=== PATIENT | female | born 1955 | race Caucasian/White ===

== ENCOUNTER 2020-04-25 11:45 | Observation (INO) | payer MEDICARE, OTHER ==
[2020-04-25 11:57] LABS: Glucose,Whole Blood 100 mg/dL (75-99)
[2020-04-25] MEDS ORDERED: SODIUM CHLORIDE 0.9% 1,000 ML IV STA (12:16)
[2020-04-25 12:48] LABS: Appearance,Urine Clear (Clear); Basophils # (A) 0.1 k/uL (0-0.2); Basophils % (A) 1 %; Bilirubin,Urine Negative (Negative); Blood,Urine Small (Negative); Color,Urine Yellow; Eosinophils % (A) 1 %; Glucose,Urine (UA) Negative (Negative); Ketones,Urine Negative (Negative); Leukocyte Esterase,Urine Negative (Negative); Lymphocytes % (A) 20 %; MCH 31.9 pg (25.0-35.0); MCHC 33.1 g/dL (31.0-37.0); MCV 96.4 fL (80.0-100.0); Mean Platelet Volume 6.7; Monocytes # (A) 0.2 k/uL (0-1.0); Monocytes % (A) 4 %; Mucus,Urine Rare /hpf; Neutrophils # (A) 3.7 k/uL (1.3-7.7); Neutrophils % (A) 73 %; Nitrite,Urine Negative (Negative); Protein,Urine Negative (Negative); RBC 6.75 m/uL (3.80-5.40); RBC,Urine 6 /hpf (0-5); RDW 15.7 % (11.5-15.5); Specific Gravity,Urine 1.005 (1.001-1.035); Urobilinogen,Urine <2.0 mg/dL (<2.0); WBC 5.1 k/uL (3.8-10.6); WBC,Urine 1 /hpf (0-5)
[2020-04-25 12:50] LABS: ALT 13 U/L (4-34); AST 24 U/L (14-36); African American GFR (CKD) >90 (>60 ml/min/1.73 sqM); Albumin 4.2 g/dL (3.5-5.0); Alkaline Phosphatase 63 U/L (38-126); Anion Gap 8 mmol/L; Blood Urea Nitrogen 11 mg/dL (7-17); Calcium 9.1 mg/dL (8.4-10.2); Carbon Dioxide 23 mmol/L (22-30); Chloride 105 mmol/L (98-107); Creatine Kinase 67 U/L (30-135); Glucose 101 mg/dL (74-99); Magnesium 1.7 mg/dL (1.6-2.3); Non-African American GFR(CKD) 80 (>60 ml/min/1.73 sqM); Potassium 4.1 mmol/L (3.5-5.1); Sodium 136 mmol/L (137-145); Total Bilirubin 0.6 mg/dL (0.2-1.3); Total Protein 7.4 g/dL (6.3-8.2)
[2020-04-25 12:51] LABS: HCT 65.1 % (34.0-46.0); HGB 21.5 gm/dL (11.4-16.0)
--- NOTE | 2020-04-25 12:51 | XR ---
EXAMINATION TYPE: XR chest 2V DATE OF EXAM: 04/25/2020 COMPARISON: NONE TECHNIQUE: PA and lateral views submitted. HISTORY: Syncope FINDINGS: The lungs are clear and there is no pneumothorax, pleural effusion, or focal pneumonia. Postoperati ve change. No overt failure. Biapical pleural thickening. Hyperinflation suggests COPD. No overt fail ure. Arthropathy of the shoulders. IMPRESSION: 1. No acute process. Postsurgical change correlate for COPD.
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
[2020-04-25 13:19] LABS: Platelet Count 87 k/uL (150-450)
[2020-04-25 13:55] LABS: Partial Thromboplastin Time 22.6 sec (22.0-30.0); Prothrombin Time 10.2 sec (9.0-12.0)
[2020-04-25 14:12] LABS: D-Dimer 12.2 mg/L FEU (<0.60)
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
[2020-04-25] MEDS ORDERED: NITROGLYCERIN SL TABS 0.4 MG TAB SUBLINGUAL PRN (14:54)
[2020-04-25] MEDS: SODIUM CHLORIDE 0.9% 1,000 ML IV SCH (15:45)
[2020-04-25] MEDS ORDERED: TEMAZEPAM 15 MG CAP PO PRN (17:34)
[2020-04-25] MEDS ORDERED: ALPRAZolam 0.25 MG TAB PO PRN (17:34)
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
--- NOTE | 2020-04-25 20:00 | US ---
EXAMINATION TYPE: US carotid duplex BILAT DATE OF EXAM: 04/25/2020 COMPARISON: NONE CLINICAL HISTORY: syncope. Syncope EXAM MEASUREMENTS: RIGHT: Peak Systolic Velocity (PSV) cm/sec ----- Right CCA: 69.7 ----- Right ICA: 98.7 ----- Right ECA: 82.7 ICA/CCA ratio: 1.4 RIGHT: End Diastole cm/sec ----- Right CCA: 24.6 ----- Right ICA: 34.8 ----- Right ECA: 8.6 LEFT: Peak Systolic Velocity (PSV) cm/sec ----- Left CCA: 75.4 ----- Left ICA: 84.2 ----- Left ECA: 81.3 ICA/CCA ratio: 1.1 LEFT: End Diastole cm/sec ----- Left CCA: 23.1 ----- Left ICA: 36.2 ----- Left ECA: 11.5 VERTEBRALS (direction of flow): Right Vertebral: Antegrade Left Vertebral: Antegrade Rhythm: Normal No significant stenosis seen IMPRESSION: There is antegrade flow in the vertebral arteries. The images and measurements suggest less than 20% stenosis in both internal carotid arteries. Criteria for Assigning % of Stenosis / Diameter reduction (Estimation based on the indirect measurements of the internal carotid artery velocities (ICA PSV). 1. Normal (no stenosis)=ICA PSV < 125 cm/s: ratio < 2.0: ICA EDV<40 cm/s. 2. Less than 50% stenosis=ICA PSV < 125 cm/s: ratio < 2.0: ICA EDV<40 cm/s. 3. 50 to 69% stenosis=ICA PSV of 125 to 230 cm/s: ration 2.0 ? 4.0: ICA EDV 40-100 cm/s. 4. Greater than 70% stenosis to near occlusion= ICA PSV > 230 cm/s: ratio > 4.0: ICA EDV > 100 cm/s. 5. Near occlusion= ICA PSV velocities may be low or undetectable: variable ratio and ICA EDV. 6. Total occlusion=unable to detect flow.
[2020-04-25] MEDS: ATORVASTATIN 20 MG TAB PO SCH (20:45)
[2020-04-25] MEDS: HEPARIN SODIUM,PORCINE 5,000 UNIT/ML 1 ML VIAL SQ SCH (20:45)
[2020-04-25] MEDS: MIDODRINE 5 MG TAB PO SCH (20:46)
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
[2020-04-26] MEDS: SODIUM CHLORIDE 0.9% 1,000 ML IV SCH ×2 (04:11→12:14)
[2020-04-26 07:27] LABS: Anisocytosis Slight; Basophils % (A) 1 %; Eosinophils # (A) 0.1 k/uL (0-0.7); Eosinophils % (A) 1 %; HCT 39.8 % (34.0-46.0); Hypochromasia Slight; Lymphocytes # (A) 2.3 k/uL (1.0-4.8); Lymphocytes % (A) 26 %; MCH 30.5 pg (25.0-35.0); MCHC 31.1 g/dL (31.0-37.0); Macrocytosis Slight; Mean Platelet Volume 7.4; Monocytes # (A) 0.6 k/uL (0-1.0); Monocytes % (A) 7 %; Neutrophils # (A) 5.7 k/uL (1.3-7.7); Neutrophils % (A) 64 %; RBC 4.06 m/uL (3.80-5.40); WBC 8.8 k/uL (3.8-10.6)
[2020-04-26 07:30] LABS: African American GFR (CKD) >90 (>60 ml/min/1.73 sqM); Anion Gap 4 mmol/L; Blood Urea Nitrogen 8 mg/dL (7-17); Carbon Dioxide 21 mmol/L (22-30); Chloride 111 mmol/L (98-107); Cholesterol 173 mg/dL (<200); Glucose 81 mg/dL (74-99); Non-African American GFR(CKD) 84 (>60 ml/min/1.73 sqM); Sodium 136 mmol/L (137-145)
[2020-04-26 07:34] LABS: HGB 12.4 gm/dL (11.4-16.0)
[2020-04-26 07:35] LABS: Calcium 8.6 mg/dL (8.4-10.2); HDL Cholesterol 72 mg/dL (40-60); LDL Cholesterol,Calculated 81 mg/dL (0-99); Platelet Count 284 k/uL (150-450); Triglycerides 100 mg/dL (<150)
[2020-04-26] MEDS: PARoxetine 10 MG TAB PO SCH (08:25)
[2020-04-26] MEDS: PANTOPRAZOLE 40 MG TABLET PO SCH ×2 (08:25→08:31)
[2020-04-26] MEDS: ASPIRIN 325 MG TAB PO SCH (08:25)
[2020-04-26] MEDS: MIDODRINE 5 MG TAB PO SCH ×2 (08:25→20:55)
[2020-04-26] MEDS: HEPARIN SODIUM,PORCINE 5,000 UNIT/ML 1 ML VIAL SQ SCH ×4 (08:25→20:59)
[2020-04-26] MEDS: NICOTINE 14MG/24HR PATCH TRANSDERM SCH (08:26)
[2020-04-26 12:01] VITALS: BMI 18.0
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
--- NOTE | 2020-04-26 15:21 | PN ---
PROGRESS NOTE DATE OF SERVICE: 04/26/2020 This 64-year-old woman admitted with syncope had bifascicular block at this time. The patient previously investigated, and pacemaker was considered. Apparently was not done. Neurovascular workup was negative at this time. Cardiology following the patient closely. Past medical history reviewed. REVIEW OF SYSTEMS: CARDIOVASCULAR SYSTEM: No angina or palpitations. RESPIRATIONS: As mentioned earlier. GI: As mentioned earlier. : No dysuria. NERVOUS SYSTEM: No numbness or weakness. CURRENT MEDICATIONS: Reviewed and include: Xanax, aspirin, Lipitor, heparin, midodrine, Protonix, Paxil, Restoril. PHYSICAL EXAM: Patient is alert, oriented x3. Pulse 67, blood pressure 89/52, respiration 14, temperature 98.2, pulse ox 98% on room air. HEENT: Conjunctivae normal. NECK: No JVD. CARDIOVASCULAR: S1, S2 muffled. RESPIRATIONS: Breath sounds diminished in the bases. A few scattered rhonchi and crackles. ABDOMEN: Soft, nontender. LEGS are no edema. No swelling. NERVOUS SYSTEM: No focal deficits. LABS: WBC 8.2, hemoglobin 12.4. Yesterday hemoglobin was 21.5, sodium 136. ASSESSMENT: 1. Syncope, possibly cardiac arrhythmia, possibly vasovagal. 2. Polycythemia possibly artifactual. 3. 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 4. Mild thrombocytopenia. 5. Hypotension relative. 6. Hyponatremia. 7. History of nicotine dependence. 8. Chronic obstructive pulmonary disease and fibrotic changes in the CT scan. 9. Hyperlipidemia. RECOMMENDATIONS AND DISCUSSION: I recommend to continue current management and continue with IV fluids. Otherwise closely follow with Cardiology. Possible pacemaker. DVT prophylaxis. Proton pump inhibitors. Resume the home medications. Avoid beta blockers. Guarded prognosis because of multiple complex medical issues. Further recommendations to follow. Discussed with the patient at length. MMODL / IJN: [id number] / AN
[2020-04-26 17:15] VITALS: RESP 16
[2020-04-26 19:50] VITALS: PULSE 68
[2020-04-26] MEDS: ATORVASTATIN 20 MG TAB PO SCH (20:55)
[2020-04-27] MEDS: SODIUM CHLORIDE 0.9% 1,000 ML IV SCH ×2 (00:03→08:14)
[2020-04-27 07:22] LABS: Basophils # (A) 0.1 k/uL (0-0.2); Basophils % (A) 1 %; Eosinophils # (A) 0.1 k/uL (0-0.7); Eosinophils % (A) 1 %; HCT 43.5 % (34.0-46.0); HGB 13.8 gm/dL (11.4-16.0); Lymphocytes # (A) 2.8 k/uL (1.0-4.8); Lymphocytes % (A) 27 %; MCH 30.7 pg (25.0-35.0); MCHC 31.8 g/dL (31.0-37.0); MCV 96.8 fL (80.0-100.0); Mean Platelet Volume 7.5; Monocytes # (A) 0.8 k/uL (0-1.0); Monocytes % (A) 7 %; Neutrophils # (A) 6.5 k/uL (1.3-7.7); Neutrophils % (A) 63 %; Platelet Count 324 k/uL (150-450); RBC 4.49 m/uL (3.80-5.40); RDW 15.5 % (11.5-15.5); WBC 10.4 k/uL (3.8-10.6)
[2020-04-27 07:27] LABS: African American GFR (CKD) >90 (>60 ml/min/1.73 sqM); Anion Gap 6 mmol/L; Blood Urea Nitrogen 10 mg/dL (7-17); Calcium 9.3 mg/dL (8.4-10.2); Carbon Dioxide 24 mmol/L (22-30); Chloride 108 mmol/L (98-107); Glucose 88 mg/dL (74-99); Non-African American GFR(CKD) 84 (>60 ml/min/1.73 sqM); Sodium 138 mmol/L (137-145)
[2020-04-27] MEDS: NICOTINE 14MG/24HR PATCH TRANSDERM SCH (08:01)
[2020-04-27 08:02] VITALS: BP 122/55; TEMP 99
[2020-04-27] MEDS: HEPARIN SODIUM,PORCINE 5,000 UNIT/ML 1 ML VIAL SQ SCH (08:06)
[2020-04-27] MEDS: MIDODRINE 5 MG TAB PO SCH (08:11)
[2020-04-27] MEDS: ASPIRIN 325 MG TAB PO SCH (08:11)
[2020-04-27] MEDS: PARoxetine 10 MG TAB PO SCH (08:11)
[2020-04-27] MEDS: PANTOPRAZOLE 40 MG TABLET PO SCH (08:11)
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
--- NOTE | 2020-04-27 13:00 | ECHOF ---
Referral Reason:syncope MEASUREMENTS -------- HEIGHT: 170.2 cm WEIGHT: 52.2 kg BP: 98/52 RVIDd: 2.2 cm (< 3.3) IVSd: 1.1 cm (0.6 - 1.1) LVIDd: 3.4 cm (3.9 - 5.3) LVPWd: 1.3 cm (0.6 - 1.1) IVSs: 1.5 cm LVIDs: 2.0 cm LVPWs: 1.7 cm LAESV Index (A-L): 12.82 ml/m Ao Diam: 2.4 cm (2.0 - 3.7) AV Cusp: 1.4 cm (1.5 - 2.6) LA Diam: 2.2 cm (2.7 - 3.8) MV EXCURSION: 15.510 mm (> 18.000) MV EF SLOPE: 100 mm/s (70 - 150) EPSS: 0.3 cm MV E Etienne: 1.13 m/s MV DecT: 288 ms MV A Etienne: 0.72 m/s MV E/A Ratio: 1.56 RAP: 5.00 mmHg RVSP: 14.74 mmHg FINDINGS -------- This was a technically good study. The left ventricular size is normal. There is borderline concentric left ventricular hypertrophy. Overall left ventricular systolic function is normal with, an EF between 55 - 60 %. Normal LAP Gra de 1 Diastolic Dysfunction. The right ventricle is normal in size. The left atrial size is normal. Normal LA size by volume 22+/-6 ml/m2. The right atrial size is normal. ASD repair The aortic valve is trileaflet and appears structurally normal. The mitral valve is normal. The mitral valve leaflets are mildly thickened. Mild mitral regurgita tion is present. The tricuspid valve appears structurally normal. Mild tricuspid regurgitation present. Right vent ricular systolic pressure is normal at < 35 mmHg. There is no pulmonic regurgitation present. The aortic root size is normal. Normal inferior vena cava with normal inspiratory collapse consistent with estimated right atrial pre ssure of 5 mmHg. There is no pericardial effusion. CONCLUSIONS -------- 1. The left ventricular size is normal. 2. There is borderline concentric left ventricular hypertrophy. 3. Overall left ventricular systolic function is normal with, an EF between 55 - 60 %. 4. Normal LAP Grade 1 Diastolic Dysfunction. 5. ASD repair 6. The mitral valve leaflets are mildly thickened. 7. Mild mitral regurgitation is present. 8. Mild tricuspid regurgitation present. 9. There is no pericardial effusion. UX VISUAL DESIGNER: Melodie Rhodes RDCS
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
== END 2020-04-27 14:10 | disposition home or self-care (01) ==
LOC: EC 11:45 → 1SOBS 14:54
PROVIDERS: ADMIT Hospitalist; ATTEND Hospitalist
DX: R55 Syncope and collapse (principal); V47.5XXA Car driver injured in collision with fixed or stationary object in traffic accident, initial encounter; I45.3 Trifascicular block; F17.200 Nicotine dependence, unspecified, uncomplicated; E78.5 Hyperlipidemia, unspecified; D69.6 Thrombocytopenia, unspecified; D75.1 Secondary polycythemia; E87.1 Hypo-osmolality and hyponatremia; I95.9 Hypotension, unspecified; J44.9 Chronic obstructive pulmonary disease, unspecified; Z87.74 Personal history of (corrected) congenital malformations of heart and circulatory system; Z98.890 Other specified postprocedural states; Z95.1 Presence of aortocoronary bypass graft; Z79.899 Other long term (current) drug therapy
CPT/HCPCS: 96361 ×2; 96372; 96360; 99285; 36415; 93005 ×2; 93306; 85379; 80061; 80053; 80048 ×2; 82550; 83735; 84484; 85025 ×3; 85610; 85730; 81001; 71046; 93880; 70450; 71275; 74177; G0378 ×3; J1644; Q9967

== ENCOUNTER → 2020-05-07 | Outpatient (CLI) | payer MEDICARE ==
[2020-05-07 10:15] LABS: HGB 13.6 gm/dL (11.4-16.0); MCHC 31.6 g/dL (31.0-37.0); MCV 98.1 fL (80.0-100.0); Mean Platelet Volume 6.6; Platelet Count 419 k/uL (150-450); RBC 4.39 m/uL (3.80-5.40); RDW 15.4 % (11.5-15.5)
[2020-05-07 10:44] LABS: Potassium 4.6 mmol/L (3.5-5.1)
== END | disposition home or self-care (01) ==
LOC: LABPAT 09:32
PROVIDERS: ATTEND Internal Medicine Cardiovascular Disease
DX: Z01.818 Encounter for other preprocedural examination (principal); I45.3 Trifascicular block
CPT/HCPCS: 36415; 80051; 82565; 84520; 85027

== ENCOUNTER 2020-05-11 07:44 | Day surgery (SDC) | payer SELFPAY ==
[2020-05-07 17:22] VITALS: BMI 19.3
[2020-05-11] MEDS ORDERED: ceFAZolin 1,000 MG in SODIUM CHLORIDE 0.9% IRRIGATIO 250 ML IRRIGATION ONE (08:00)
[2020-05-11 08:24] VITALS: RESP 16
[2020-05-11] MEDS ORDERED: SODIUM CHLORIDE 0.9% 500 ML 500 ML IV ONE (08:32)
[2020-05-11] MEDS ORDERED: IOPAMIDOL-250 50ML BTL IV ONE (08:57)
[2020-05-11] MEDS ORDERED: fentaNYL (PF) 50 MCG/ML 2 ML AMP ONE (09:06)
[2020-05-11] MEDS ORDERED: LIDOCAINE 1% INJ 10MG/ML (20 ML MDV) ONE (09:06)
[2020-05-11] MEDS: MIDAZOLAM 2 MG/2 ML VIAL IV ONE ×2 (09:12→09:19)
[2020-05-11] MEDS: fentaNYL (PF) 50 MCG/ML 2 ML AMP IV ONE ×2 (09:12→09:19)
[2020-05-11] MEDS ORDERED: LIDOCAINE 1% INJ 10MG/ML (20 ML MDV) SQ ONE ×2 (09:19→09:25)
[2020-05-11] MEDS ORDERED: ACETAMINOPHEN TAB 325 MG TAB PO PRN (10:08)
[2020-05-11] MEDS ORDERED: HYDROcodone/APAP 5-325MG 1 EACH TAB PO PRN (10:08)
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
[2020-05-11] MEDS: MIDODRINE 5 MG TAB PO SCH (20:44)
[2020-05-11] MEDS ORDERED: ATORVASTATIN 20 MG TAB PO SCH (21:00)
[2020-05-12] MEDS: SODIUM CHLORIDE 0.9% 1,000 ML IV SCH ×4 (01:20→02:29)
[2020-05-12 08:12] VITALS: BP 122/71; PULSE 71; TEMP 97.9
[2020-05-12] MEDS: MIDODRINE 5 MG TAB PO SCH (08:51)
--- NOTE | 2020-05-12 08:54 | XR ---
EXAMINATION TYPE: XR chest 2V DATE OF EXAM: 05/12/2020 COMPARISON: 04/25/2020 HISTORY: 64-year-old female weight placement check TECHNIQUE: Frontal and lateral views FINDINGS: Left anterior chest wall pacemaker generator with right atrial and right ventricular leads. Median st ernotomy wires are present. Heart normal size. Aorta and pulmonary vasculature within normal limits. No consolidation or pleural effusion. Surgical clips within the anterior mediastinum. IMPRESSION: Dual-lead left-sided pacemaker generator. No acute process seen.
[2020-05-12] MEDS ORDERED: PARoxetine 10 MG TAB PO SCH (09:00)
--- NOTE | 2020-05-13 12:26 | P.DS ---
Providers Date of admission: 05/11/2020 Expected date of discharge: 05/12/20 Attending physician: David Stephenson Primary care physician: Stated None - Discharge Diagnosis(es) (1) Presence of permanent cardiac pacemaker Status: Acute (2) History of open heart surgery Status: Acute (3) Syncope Status: Acute (4) Trifascicular block Status: Acute Hospital Course: This patient was recently admitted to the hospital with a syncopal episode. Patient had history of previous syncopes also. Patient had a loop recorder insertion for 2 years without any documented arrhythmias. It was taken out recently. Patient has trifascicular block. In view of her recurrent symptoms of syncope and was in supraventricular block without any clear explanation, patient is advised to have permanent pacemaker implantation. Patient and family were explained the risks and benefits of the procedure. Patient did undergo permanent pacemaker implantation yesterday without any complications. Patient remains stable overnight. Chest x-ray showed proper lead position. The puncture site has healed well without any significant hematoma. So far. The thresholds remained stable. Patient is being discharged home with the usual instructions. Patient will keep the dressing dry until seen in the office. She will avoid any heavy exertion pushing and pulling with the left arm and try to keep the arm below the shoulder level. She will contact our office if she has any and the swelling, fever, chills or significant pain. Follow-up in the office in one week Plan - Discharge Summary Discharge Rx Participant: No New Discharge Prescriptions: New Cephalexin [Keflex] 500 mg PO Q8HR 7 Days #21 cap No Action PARoxetine [Paxil] 10 mg PO DAILY Midodrine HCl [ProAmantine] 2.5 mg PO BID Atorvastatin Calcium [Lipitor] 20 mg PO HS Discharge Medication List Atorvastatin Calcium [Lipitor] 20 mg PO HS 04/25/20 [History] Midodrine HCl [ProAmantine] 2.5 mg PO BID 04/25/20 [History] PARoxetine [Paxil] 10 mg PO DAILY 04/25/20 [History] Cephalexin [Keflex] 500 mg PO Q8HR 7 Days #21 cap 05/12/20 [Rx] Follow up Appointment(s)/Referral(s): David Stephenson MD [STAFF PHYSICIAN] - 05/15/20 9:00 am (Device clinic is on MondayMay 15 at 9 am) Patient Instructions/Handouts: Pacemaker (DC) Discharge Disposition: HOME SELF-CARE
== END 2020-05-12 10:33 | disposition home or self-care (01) ==
LOC: CATHEP 07:44 → 3NCARDOBS 10:07 → CATHEP 05-12 10:33
PROVIDERS: ATTEND Internal Medicine Cardiovascular Disease
DX: I45.3 Trifascicular block (principal); Z87.74 Personal history of (corrected) congenital malformations of heart and circulatory system; Z79.899 Other long term (current) drug therapy; Z98.890 Other specified postprocedural states
CPT/HCPCS: 33208; 71046; C1769 ×2; C1892; C1898; C1785; J2250; J0690 ×2; J2001; J3010; Q9966